=== PATIENT | female | born 1965 | race Caucasian/White ===

== ENCOUNTER 2016-08-02 08:46 | Day surgery (SDC) | payer BC ==
[2016-07-30 17:18] VITALS: BMI 34.8
--- NOTE | 2016-08-01 21:11 | HPN ---
Date/Time of Note Date/Time of Note DATE: 08/01/16 TIME: 21:10 Interval H&P Admission Note Pt. seen H&P reviewed: No system changes SINAN ADAMS MD Aug 01, 2016 21:11
[~2016-08-02] VITALS: Ht 157.5 cm; Wt 87.2 kg
[2016-08-02] VITALS (11 sets, daily range): BP systolic 94–132; BP diastolic 55–78; PULSE 54–79; RESP 11–19; Ht 157.5 cm; Wt 87.2 kg
[~2016-08-02 08:46] MED LIST: ALPR0.5T PO
--- NOTE | 2016-08-02 11:58 | OPR ---
Date/Time of Note Date/Time of Note DATE: 08/02/16 TIME: 11:57 Operative Report Procedure Date: Aug 02, 2016 Preoperative Diagnosis left trigger thumb Postoperative Diagnosis same Operation Performed a1 carolyn relase Surgeon: SINAN ADAMS MD Anesthesia: MAC Anesthesiologist: PEPE LÓPEZ MD Complications: None Pt Condition Post Procedure: stable SINAN ADAMS MD Aug 02, 2016 11:58
[2016-08-02] MEDS ORDERED: LIDOCAINE 1% (MPF) 30 ML INJ ONE (12:24)
[2016-08-02] MEDS ORDERED: BUPIVACAINE 0.5% (SDV) 30 ML INJ ONE (12:24)
[2016-08-02] MEDS ORDERED: MIDAZOLAM 1 MG/ML 2 ML INJ ONE (12:28)
[2016-08-02] MEDS ORDERED: CEFAZOLIN 1 GM INJ ONE (12:28)
[2016-08-02] MEDS ORDERED: FENTAnyl 50 MCG/ML VIAL ONE (12:28)
[2016-08-02] MEDS ORDERED: PROPOFOL 20 ML ONE (12:28)
[2016-08-02] MEDS ORDERED: LIDOCAINE 2% (SDV) 5 ML INJ ONE (12:28)
[2016-08-02] MEDS ORDERED: OXYCODONE/ACETAMINOPHEN (5/325) TAB PO PRN (12:30)
[2016-08-02] MEDS ORDERED: ONDANSETRON 4 MG INJ IV PRN (12:30)
[2016-08-02] MEDS ORDERED: FENTAnyl 50 MCG/ML VIAL IV PRN (12:30)
[2016-08-02] MEDS ORDERED: DIPHENHYDRAMINE 50 MG INJ IV PRN (12:30)
[2016-08-02] MEDS ORDERED: MEPERIDINE 25 MG INJ IV PRN (12:30)
[2016-08-02] MEDS ORDERED: HYDROmorphONE (0.2 MG/ML) 10ML SYG IV PRN (12:30)
[2016-08-02] MEDS ORDERED: ONDANSETRON 4 MG INJ ONE (12:41)
--- NOTE | 2016-08-02 13:57 | OPR ---
DATE OF OPERATION: 08/02/2016 PREOPERATIVE DIAGNOSIS: Left thumb trigger thumb. POSTOPERATIVE DIAGNOSIS: Left thumb trigger thumb. OPERATION PERFORMED: Left trigger thumb release. SURGEON: Sinan Jane MD TIGHTENER: Staff. SPEED WINDER: Dr. Rodriguez ANESTHESIA: Sedation by the anesthesiologist, local anesthetic by the surgeon. SURGICAL PAUSE: I examined the patient in the holding area. I chris in the surgical incision. I showed the drawn surgical incision to the patient. I confirmed the operative procedure and plan. INFORMED CONSENT: At the time I scheduled the operative procedure, we talked to patient about the risks and hazards of surgery, talked about operative mortality, wound infection, nerve injury, good result, bad result, potential complications. Patient signed a note confirming the informed consent conversation. DESCRIPTION OF PROCEDURE: The patient was anesthetized as above. Pneumatic tourniquet inflated to 250 mmHg. Local anesthetic was applied at thumb and wrist. A transverse incision made at the A1 carolyn at the site was marked. We exposed the flexor tendon sheath and protect the neurovascular bundles behind retractors. I split with a knife the A1 carolyn and extended proximally and distally for a short distance taking care to protect the A2 pulleys. Flexor tendons was _freed throughout the length of the A1 carolyn. Wound was closed with interrupted Vicryl Rapide suture and a bulky dressing applied. DISCHARGE MEDICATIONS: 1. Hydrocodone with acetaminophen. 2. Keflex. FOLLOWUP: Will be in our office in a week. PLAN: Early motion. Dictated By: SINAN CRISOSTOMO/CHAPARRO Conf#: [id number] DID#: [id number] [facility]ITALVinita
== END 2016-08-02 15:20 | disposition home or self-care (01) ==
LOC: SDS 08:46
PROVIDERS: ATTEND Orthopaedic Surgery Hand Surgery
DX: M65.312 Trigger thumb, left thumb (principal); E66.9 Obesity, unspecified; Z68.35 Body mass index [BMI] 35.0-35.9, adult
CPT/HCPCS: 26055; 84703; J0690; J2250; J2405; J3010; Z7512; Z7610

== ENCOUNTER 2016-12-14 06:47 | Day surgery (SDC) | payer BC ==
[~2016-12-14] VITALS: Ht 157.5 cm; Wt 87.3 kg
[2016-12-14] MEDS ORDERED: MULTIVITAMIN (08:00)
[2016-12-14 08:01] VITALS: Ht 157.5 cm; Wt 87.3 kg
[2016-12-14 08:19] VITALS: BP 114/63; PULSE 61; RESP 17
--- NOTE | 2016-12-14 08:43 | OPPN ---
Date/Time of Note Date/Time of Note DATE: 12/14/16 TIME: 08:42 Operative Report Preoperative Diagnosis Screening colonoscopy Postoperative Diagnosis Internal hemorrhoids No colon neoplasm is identified Operation/Procedure Performed Colonoscopy Anesthesia Type: MAC Estimated blood loss: none Transfusion Required: no Specimen: none Grafts/Implants: none Complications: no ELOY BRYAN MD Dec 14, 2016 08:43
[2016-12-14 09:07] VITALS: BP 100/59; RESP 20
--- NOTE | 2016-12-14 20:17 | GILP ---
DATE OF PROCEDURE: 12/14/2016 PROCEDURE PERFORMED: Colonoscopy. PREOPERATIVE DIAGNOSIS: Screening colonoscopy. POSTOPERATIVE DIAGNOSES: 1. Colonoscopy all the way to the cecum. 2. Diverticulosis of the colon. 3. Internal hemorrhoids. 4. No colon neoplasm was identified. INDICATION: Ms. Natalie Oscar is a 51-year-old female patient who was scheduled for screening colonoscopy. The procedure and possible complications were well explained to the patient. The patient understood and consented to the procedure. DESCRIPTION OF PROCEDURE: Under the influence of anesthesia, the colonoscope was carefully introduced in the rectum, and under direct vision it was advanced all the way to the cecum. FINDINGS: Patient had diverticulosis of the colon. She also had internal hemorrhoids. No colon neoplasm was identified. She tolerated the procedure very well. There were no complications from the procedure. At the end of procedure she was awake with stable vital signs, and she was discharged home in the care of her family. IMPRESSION: 1. Colonoscopy all the way to the cecum. 2. Diverticulosis of the colon. 3. Internal hemorrhoids. 4. No colon neoplasm was identified. PLAN: 1. High-fiber diet. 2. Next screening colonoscopy in 10 years. Dictated By: MD BALAJI Amato/scott/raymond /Document#: [id number]
== END 2016-12-14 12:52 | disposition home or self-care (01) ==
LOC: GIL 06:47
PROVIDERS: ATTEND Internal Medicine Gastroenterology
DX: Z12.11 Encounter for screening for malignant neoplasm of colon (principal); K57.90 Diverticulosis of intestine, part unspecified, without perforation or abscess without bleeding; K64.8 Other hemorrhoids
CPT/HCPCS: 45378; Z7610